=== PATIENT | male | born 1955 | race Caucasian/White ===

== ENCOUNTER 2020-06-06 09:46 | Emergency (ER) | payer BC, MEDICAID ==
[~2020-06-06] VITALS: Ht 182.9 cm; Wt 106.6 kg
[2020-06-06 09:49] VITALS: BP_SYST 104
--- NOTE | 2020-06-06 09:49 | NUR ---
Placed in room 06 . Placed on clinical research monitor, blood pressure machine and pulse oximeter. To gown for exam. Side rails up.
--- NOTE | 2020-06-06 09:52 | NUR ---
Patient brought in by ambulance in the ED c/o 8-10 episodes of diarrhea and lower abdominal pain that started 3 weels ago. Denied any chest pain or shortness of breath. Denied any fevers, chills, nausea or vomiting. Patient is alert and oriented x4, respirations even and unlabored, and speaking in full sentences. VSS, pain level 7/10. Informed of the approximate wait time. Instructed to notify ED staff for any changes in condition or worsening of symptoms while waiting to be seen by an ED provider. Patient verbalized understanding.
--- NOTE | 2020-06-06 09:56 | NUR ---
ER Dr. Delaney at bedside examining patient.
--- NOTE | 2020-06-06 10:10 | NUR ---
ECG done at bedside as ordered by Dr. Delaney. Patient tolerated the procedure well. ER Physician given copy of EKG for review.
--- NOTE | 2020-06-06 10:13 | NUR ---
body technician/painter at bedside collecting blood specimen as ordered by Dr. Delaney. Patient tolerated the procedure well.
--- NOTE | 2020-06-06 10:17 | NUR ---
UA collected and sent to the lab.
--- NOTE | 2020-06-06 10:25 | NUR ---
X-ray done at bedside as ordered by Dr. Delaney. Patient tolerated the procedure well.
[2020-06-06 10:28] LABS: BILIRUBIN,URINE NEGATIVE (NEGATIVE); BLOOD, URINE NEGATIVE (NEGATIVE); CLARITY/URINE CLEAR (CLEAR); COLOR,URINE YELLOW (YELLOW); GLUCOSE,URINE NEGATIVE (NEGATIVE); KETONES,URINE NEGATIVE (NEGATIVE); LEUKOCYTE ESTERASE ,URINE NEGATIVE (NEGATIVE); NITRITE, URINE NEGATIVE (NEGATIVE); PH,URINE 5.5 (5.0-8.0); PROTEIN URINE 1+ (NEGATIVE); UROBILINOGEN,URINE 0.2 (0.2-1.0)
[2020-06-06 10:40] LABS: BASOPHILS # (AUTO) 0.1 K/uL (0.0-0.2); BASOPHILS % (AUTO) 0.7 % (0.0-2.0); EOSINOPHILS # (AUTO) 0.5 K/uL (0.0-0.4); EOSINOPHILS % (AUTO) 5.5 % (0.0-4.0); LYMPHOCYTES # (AUTO) 1.5 K/uL (1.0-5.5); MONOCYTES # (AUTO) 0.5 K/uL (0.0-1.0); MONOCYTES % (AUTO) 5.4 % (1.7-9.3)
[2020-06-06 10:43] LABS: HEMATOCRIT 44.3 % (36-54); HEMOGLOBIN 15.1 g/dL (14.0-18.0); MEAN CORPUSCULAR HEMOGLOBIN 29 pg (27-31); MEAN CORPUSCULAR HGB CONC 34 % (32-36); MEAN CORPUSCULAR VOLUME 85 fL (79.0-98.0); NEUTROPHILS # (AUTO) 7.1 K/uL (1.8-7.7); NEUTROPHILS % (AUTO) 73.4 % (40.0-70.0); PLATELET COUNT (AUTO) 215 K/uL (130-430); RED CELL DISTRIBUTION WIDTH 14.2 % (9.0-15.0); WHITE BLOOD COUNT (AUTO) 9.7 K/uL (4.8-10.8)
[2020-06-06 11:02] LABS: CALCIUM 8.5 mg/dL (8.4-11.0); CREATININE 1.44 mg/dL (0.55-1.30); POTASSIUM 3.6 mmol/L (3.5-5.1)
[2020-06-06 11:07] LABS: PROTHROMBIN TIME 10.6 SECS (9.5-12.5)
[2020-06-06 11:08] LABS: TOTAL BILIRUBIN 0.6 mg/dL (0.0-1.0)
[2020-06-06] MEDS ORDERED: DIPHENOXYLATE HCL/ATROP SULF 2.5 MG TAB PO ONE (12:15)
--- NOTE | 2020-06-06 12:32 | NUR ---
Patient given written and verbal discharge instructions and verbalizes understanding. ER MD discussed with patient the results and treatment provided. Patient in stable condition. ID arm band removed. Rx of Lomotil given. Patient educated on pain management and to follow up with PMD. Pain Scale 0/10. Opportunity for questions provided and answered. Medication side effect fact sheet provided.
[2020-06-06 12:33] VITALS: BP_SYST 104
== END 2020-06-06 12:32 | disposition home or self-care (01) ==
LOC: SED 09:46
DX: R10.30 Lower abdominal pain, unspecified (principal); J44.9 Chronic obstructive pulmonary disease, unspecified; I10 Essential (primary) hypertension
CPT/HCPCS: 36415; 71045; 80053; 81003; 83605; 83690-TC; 85025; 85610-TC; 87040-TC; 93005; 99285

== ENCOUNTER 2023-04-13 19:30 | Inpatient (IN) | payer OTHER, BC ==
[~2023-04-13] VITALS: Ht 182.9 cm; Wt 117.9 kg
[2023-04-13 20:23] VITALS: BP_SYST 127; PULSE 72; RESP 22; TEMP 97.6; O2SAT 98
[2023-04-13 21:05] LABS: BASOPHILS % (AUTO) 0.2 % (0.0-2.0); EOSINOPHILS % (AUTO) 0.3 % (0.0-4.0); HEMATOCRIT 35.3 % (36-54); HEMOGLOBIN 11.9 g/dL (14.0-18.0); LYMPHOCYTES # (AUTO) 0.9 K/uL (1.0-5.5); LYMPHOCYTES % (AUTO) 6.6 % (20.5-51.5); MEAN CORPUSCULAR HEMOGLOBIN 29 pg (27-31); MEAN CORPUSCULAR HGB CONC 34 % (32-36); MEAN CORPUSCULAR VOLUME 87 fL (79.0-98.0); MONOCYTES # (AUTO) 0.9 K/uL (0.0-1.0); MONOCYTES % (AUTO) 6.9 % (1.7-9.3); NEUTROPHILS # (AUTO) 11.6 K/uL (1.8-7.7); PLATELET COUNT (AUTO) 191 K/uL (130-430); RED BLOOD CELL COUNT(AUTO) 4.07 MIL/uL (4.2-6.2); RED CELL DISTRIBUTION WIDTH 15.6 % (9.0-15.0); WHITE BLOOD COUNT (AUTO) 13.4 K/uL (4.8-10.8)
[2023-04-13 21:50] LABS: PROTHROMBIN TIME 10.1 SECS (9.5-12.5)
[2023-04-13 21:52] LABS: ALANINE AMINOTRANSFERASE 88 U/L (12-78); ALBUMIN 3.7 g/dL (3.4-4.8); ANION GAP 15 (5-15); ASPARTATE AMINOTRANSFERASE 42 U/L (10-37); CALCIUM 8.1 mg/dL (8.4-11.0); CARBON DIOXIDE 27 mmol/L (23-29); CHLORIDE 98 mmol/L (98-107); CREATININE 2.95 mg/dL (0.55-1.30); GFR AFRICAN AMERICAN 27 mL/min (>90); GLUCOSE 158 mg/dL (74-106); SODIUM SERUM 140 mmol/L (136-145); TOTAL BILIRUBIN 0.6 mg/dL (0.0-1.0); TOTAL PROTEIN, SERUM 6.6 g/dL (6.4-8.3)
[2023-04-13 21:53] LABS: GFR NON AFRICAN-AMERICAN 23 mL/min (>90)
[2023-04-13 21:56] LABS: POTASSIUM 2.3 mmol/L (3.5-5.1); UREA NITROGEN, BLOOD 120 mg/dL (8-21)
[2023-04-13] MEDS ORDERED: KCL 20 mEq in 100 mL (PREMIX) 100 ML IV ONE (22:30)
[2023-04-13] MEDS ORDERED: NACL 0.9% 1,000 ML IV ONE (22:30)
[2023-04-13] MEDS ORDERED: POTASSIUM CHLORIDE 20 MEQ/PKT PACKET PO ONE (22:30)
[2023-04-13] MEDS ORDERED: METO25TA6 PO (23:52)
[2023-04-13] MEDS ORDERED: AMLO5TAB92 PO (23:52)
[2023-04-13] MEDS ORDERED: ASPI-1155 PO (23:52)
[2023-04-13] MEDS ORDERED: FURO40TA5 PO (23:52)
[2023-04-13] MEDS ORDERED: METO5TAB7 PO (23:58)
[2023-04-13] MEDS ORDERED: ALBU90AE2 IH (23:58)
[2023-04-13] MEDS ORDERED: PRED20TA PO (23:58)
[2023-04-13] MEDS ORDERED: GABA300T26 PO (23:58)
[2023-04-14] MEDS ORDERED: INSULIN REGULAR, HUMAN 100 UNITS/ML, 3 ML VIAL (humuLIN R) SUBCUT PRN
[2023-04-14] MEDS ORDERED: NACL 0.9% 1,000 ML IV SCH
[2023-04-14 01:01] VITALS: BP_SYST 130; PULSE 68; RESP 18; TEMP 97.6; O2SAT 98
== END 2023-04-14 00:58 | disposition left against medical advice (07) | DRG 640 ==
LOC: SED 19:30 → STU 23:48
PROVIDERS: ADMIT General Practice; ATTEND General Practice
DX: E87.5 Hyperkalemia (principal); I21.4 Non-ST elevation (NSTEMI) myocardial infarction; J44.9 Chronic obstructive pulmonary disease, unspecified; I11.0 Hypertensive heart disease with heart failure; I50.9 Heart failure, unspecified; Z53.29 Procedure and treatment not carried out because of patient's decision for other reasons
CPT/HCPCS: 36415; 71045; 80053; 83880; 84484; 85025; 85610-TC; 85730-TC; 93005; 99285; G0378; J3480; J7030

== ENCOUNTER 2023-05-05 12:38 | Inpatient (IN) | payer OTHER, BC ==
[~2023-05-05] VITALS: Ht 182.9 cm; Wt 121.6 kg
[~2023-05-05 12:38] MED LIST: ALBU90AE2 IH; AMLO5TAB92 PO; ASPI-1155 PO; FURO40TA5 PO; GABA300T26 PO; METO25TA6 PO; METO5TAB7 PO; PRED20TA PO
[2023-05-05 12:45] VITALS: BP_SYST 128; PULSE 89; RESP 22; TEMP 97.8; O2SAT 96
[2023-05-05] MEDS ORDERED: IPRATROPIUM/ALBUTEROL SULFATE 3 ML AMPUL.NEB (DUONEB) INH ONE (13:00)
[2023-05-05] MEDS ORDERED: ALBUTEROL SULFATE 0.083% 2.5 MG/3 ML VIAL.NEB INH ONE (13:00)
[2023-05-05 13:08] VITALS: O2SAT 99
[2023-05-05 13:12] LABS: BASOPHILS # (AUTO) 0.1 K/uL (0.0-0.2); BASOPHILS % (AUTO) 0.8 % (0.0-2.0); EOSINOPHILS # (AUTO) 0.2 K/uL (0.0-0.4); EOSINOPHILS % (AUTO) 1.4 % (0.0-4.0); HEMATOCRIT 35.1 % (36-54); HEMOGLOBIN 11.5 g/dL (14.0-18.0); LYMPHOCYTES # (AUTO) 1.8 K/uL (1.0-5.5); LYMPHOCYTES % (AUTO) 16.6 % (20.5-51.5); MEAN CORPUSCULAR HEMOGLOBIN 29 pg (27-31); MEAN CORPUSCULAR HGB CONC 33 % (32-36); MEAN CORPUSCULAR VOLUME 89 fL (79.0-98.0); MONOCYTES # (AUTO) 0.9 K/uL (0.0-1.0); MONOCYTES % (AUTO) 7.9 % (1.7-9.3); NEUTROPHILS # (AUTO) 7.9 K/uL (1.8-7.7); NEUTROPHILS % (AUTO) 73.3 % (40.0-70.0); PLATELET COUNT (AUTO) 369 K/uL (130-430); RED BLOOD CELL COUNT(AUTO) 3.96 MIL/uL (4.2-6.2); RED CELL DISTRIBUTION WIDTH 16.4 % (9.0-15.0); WHITE BLOOD COUNT (AUTO) 10.8 K/uL (4.8-10.8)
[2023-05-05 13:23] LABS: ANION GAP 13 (5-15); CALCIUM 8.5 mg/dL (8.4-11.0); CARBON DIOXIDE 23 mmol/L (23-29); CHLORIDE 97 mmol/L (98-107); CREATININE 3.64 mg/dL (0.55-1.30); GFR AFRICAN AMERICAN 21 mL/min (>90); GLUCOSE 126 mg/dL (74-106); POTASSIUM 4.5 mmol/L (3.5-5.1); SODIUM SERUM 133 mmol/L (136-145); UREA NITROGEN, BLOOD 54 mg/dL (8-21)
[2023-05-05 13:29] LABS: ALANINE AMINOTRANSFERASE 41 U/L (12-78); ASPARTATE AMINOTRANSFERASE 29 U/L (10-37); TOTAL BILIRUBIN 0.6 mg/dL (0.0-1.0); TOTAL PROTEIN, SERUM 7.7 g/dL (6.4-8.3)
[2023-05-05 13:33] LABS: GFR NON AFRICAN-AMERICAN 18 mL/min (>90)
[2023-05-05 14:08] LABS: BLOOD GAS BASE EXCESS 0.3 mmol/L (-3.0-3.0); BLOOD GAS HCO3 24.1 mmol/L (21.0-27.0); BLOOD GAS PCO2 36.6 mmHg (32.0-45.0); BLOOD GAS PH 7.437 (7.350-7.450); BLOOD GAS PO2 80.6 mmHg (75.0-100.0)
[2023-05-05 14:09] LABS: ABG O2 SAT% ESTIMATE 96.3 % (94.0-100.0); ALLEN'S TEST POSITIVE (P)
[2023-05-05] MEDS ORDERED: DEXAMETHASONE SOD PHOSPHATE 10 MG/ML VIAL IVP ONE (15:00)
[2023-05-05 15:58] LABS: INR 1.1 (0.80-1.20); PROTHROMBIN TIME 11.3 SECS (9.5-12.5)
[2023-05-05] MEDS ORDERED: CEPH-548 PO (16:13)
[2023-05-05] MEDS ORDERED: CYCL10TA25 PO (16:13)
[2023-05-05] MEDS ORDERED: POTA-360 PO (16:13)
[2023-05-05 18:02] VITALS: BP_SYST 97; PULSE 68; RESP 18; TEMP 98.6; O2SAT 94
[2023-05-05] MEDS ORDERED: NALOXONE HCL 0.4 MG/ML AMP (NARCAN) IVP PRN ×2 (18:15)
[2023-05-05] MEDS ORDERED: ACETAMINOPHEN 325 MG TABLET PO PRN (18:15)
[2023-05-05] MEDS ORDERED: HYDROcodone/ACETAMIN 5-325 MG TAB (NORCO/ VICODIN) PO PRN (18:15)
[2023-05-05] MEDS ORDERED: LORazepam 2 MG/ML VIAL IVP PRN (18:15)
[2023-05-05] MEDS ORDERED: ONDANSETRON HCL 4 MG/2 ML VIAL IVP PRN (18:15)
[2023-05-05] MEDS: ALBUTEROL SULFATE 0.083% 2.5 MG/3 ML VIAL.NEB INH SCH ×2 (19:00→23:00)
[2023-05-05] MEDS: IPRATROPIUM BROM 0.5 MG/2.5 ML VIAL.NEB (ATROVENT) INH SCH ×2 (19:00→23:00)
[2023-05-05 19:25] VITALS: BP_SYST 113; RESP 18; TEMP 99.3; O2SAT 96
[2023-05-05 20:18] VITALS: O2SAT 91
[2023-05-05] MEDS: METHYLPREDNISOLONE SOD SUCC 40 MG/ML VIAL IVP SCH (21:00)
[2023-05-05] MEDS: metOLazone 5 MG TABLET PO SCH (21:00)
[2023-05-05] MEDS ORDERED: QUEtiapine FUMARATE 25 MG TABLET PO ONE (22:30)
[2023-05-05] MEDS: CYCLOBENZAPRINE HCL 10 MG TABLET (FLEXERIL) PO SCH (22:32)
[2023-05-05] MEDS: METOPROLOL TARTRATE 25 MG TABLET PO SCH (22:32)
[2023-05-05] MEDS: NORMAL SALINE 5 ML DISP.SYRIN IVF SCH (22:33)
[2023-05-06] VITALS (9 sets, daily range): BP systolic 110–123; PULSE 68–89; RESP 17–18; TEMP 97.7–98.2; O2SAT 95–98
[2023-05-06] MEDS: HYDROcodone/ACETAMIN 10-325 MG TAB PO PRN ×3 (01:36→21:50)
[2023-05-06] MEDS ORDERED: IPRATROPIUM BROM 0.5 MG/2.5 ML VIAL.NEB (ATROVENT) INH PRN (02:00)
[2023-05-06] MEDS: IPRATROPIUM BROM 0.5 MG/2.5 ML VIAL.NEB (ATROVENT) INH SCH ×6 (03:00→23:00)
[2023-05-06] MEDS: ALBUTEROL SULFATE 0.083% 2.5 MG/3 ML VIAL.NEB INH SCH ×6 (03:00→23:00)
[2023-05-06 05:05] LABS: BASOPHILS % (AUTO) 0.7 % (0.0-2.0); EOSINOPHILS % (AUTO) 0.4 % (0.0-4.0); HEMATOCRIT 27.9 % (36-54); HEMOGLOBIN 9.4 g/dL (14.0-18.0); LYMPHOCYTES # (AUTO) 0.8 K/uL (1.0-5.5); LYMPHOCYTES % (AUTO) 12.1 % (20.5-51.5); MEAN CORPUSCULAR HEMOGLOBIN 30 pg (27-31); MEAN CORPUSCULAR HGB CONC 34 % (32-36); MEAN CORPUSCULAR VOLUME 88 fL (79.0-98.0); MONOCYTES # (AUTO) 0.2 K/uL (0.0-1.0); MONOCYTES % (AUTO) 2.3 % (1.7-9.3); NEUTROPHILS # (AUTO) 5.7 K/uL (1.8-7.7); NEUTROPHILS % (AUTO) 84.5 % (40.0-70.0); PLATELET COUNT (AUTO) 292 K/uL (130-430); RED BLOOD CELL COUNT(AUTO) 3.17 MIL/uL (4.2-6.2); RED CELL DISTRIBUTION WIDTH 16.4 % (9.0-15.0); WHITE BLOOD COUNT (AUTO) 6.7 K/uL (4.8-10.8)
[2023-05-06 05:08] LABS: CALCIUM 8.1 mg/dL (8.4-11.0); CREATININE 3.17 mg/dL (0.55-1.30); PHOSPHORUS 3.8 mg/dL (2.7-4.5); POTASSIUM 5.2 mmol/L (3.5-5.1)
[2023-05-06] MEDS: NORMAL SALINE 5 ML DISP.SYRIN IVF SCH ×3 (05:29→20:17)
[2023-05-06] MEDS: METOPROLOL TARTRATE 25 MG TABLET PO SCH ×2 (08:48→20:16)
[2023-05-06] MEDS: METHYLPREDNISOLONE SOD SUCC 40 MG/ML VIAL IVP SCH ×2 (08:48→20:15)
[2023-05-06] MEDS: amLODIPine BESYLATE 5 MG TABLET PO SCH (08:49)
[2023-05-06] MEDS: ASPIRIN 81 MG TAB.CHEW PO SCH (08:49)
[2023-05-06] MEDS: metOLazone 5 MG TABLET PO SCH ×2 (08:49→20:16)
[2023-05-06] MEDS ORDERED: NON-FORMULARY MEDICATION (Potassium Chloride 1 TAB) PO SCH (09:00)
[2023-05-06] MEDS ORDERED: FUROSEMIDE 40 MG/4 ML VIAL IVP ONE (10:15)
[2023-05-06] MEDS ORDERED: PROMETHAZINE-DM 6.25 MG-15 MG/5 ML UDC PO PRN ×2 (14:45→15:00)
[2023-05-06] MEDS: PROMETHAZINE-DM 6.25 MG-15 MG/5 ML UDC PO PRN (14:51)
[2023-05-06] MEDS: FUROSEMIDE 40 MG/4 ML VIAL IVP SCH (17:35)
[2023-05-06] MEDS: GABAPENTIN 300 MG CAPSULE PO SCH (20:15)
[2023-05-06] MEDS: QUEtiapine FUMARATE 25 MG TABLET PO SCH (20:16)
[2023-05-06] MEDS: CYCLOBENZAPRINE HCL 10 MG TABLET (FLEXERIL) PO SCH (20:16)
[2023-05-07] VITALS (12 sets, daily range): BP systolic 92–147; PULSE 80–84; RESP 16–18; TEMP 97–97.7; O2SAT 95–100
[2023-05-07] MEDS: ALBUTEROL SULFATE 0.083% 2.5 MG/3 ML VIAL.NEB INH SCH ×6 (04:18→23:00)
[2023-05-07] MEDS: IPRATROPIUM BROM 0.5 MG/2.5 ML VIAL.NEB (ATROVENT) INH SCH ×6 (04:19→23:00)
[2023-05-07] MEDS: NORMAL SALINE 5 ML DISP.SYRIN IVF SCH ×3 (05:44→21:09)
[2023-05-07] MEDS: FUROSEMIDE 40 MG/4 ML VIAL IVP SCH ×2 (05:47→16:59)
[2023-05-07 06:24] LABS: BASOPHILS % (AUTO) 0.3 % (0.0-2.0); HEMATOCRIT 28.8 % (36-54); HEMOGLOBIN 9.5 g/dL (14.0-18.0); LYMPHOCYTES # (AUTO) 1.5 K/uL (1.0-5.5); LYMPHOCYTES % (AUTO) 12.4 % (20.5-51.5); MEAN CORPUSCULAR HEMOGLOBIN 29 pg (27-31); MEAN CORPUSCULAR HGB CONC 33 % (32-36); MEAN CORPUSCULAR VOLUME 88 fL (79.0-98.0); MONOCYTES # (AUTO) 0.8 K/uL (0.0-1.0); MONOCYTES % (AUTO) 6.7 % (1.7-9.3); NEUTROPHILS % (AUTO) 80.6 % (40.0-70.0); PLATELET COUNT (AUTO) 370 K/uL (130-430); RED BLOOD CELL COUNT(AUTO) 3.27 MIL/uL (4.2-6.2); WHITE BLOOD COUNT (AUTO) 12.4 K/uL (4.8-10.8)
[2023-05-07 06:47] LABS: CALCIUM 8.6 mg/dL (8.4-11.0); CREATININE 2.77 mg/dL (0.55-1.30); PHOSPHORUS 4.9 mg/dL (2.7-4.5); POTASSIUM 4.7 mmol/L (3.5-5.1)
[2023-05-07] MEDS: ASPIRIN 81 MG TAB.CHEW PO SCH (08:18)
[2023-05-07] MEDS: GABAPENTIN 300 MG CAPSULE PO SCH ×2 (08:19→21:06)
[2023-05-07] MEDS: amLODIPine BESYLATE 5 MG TABLET PO SCH (08:19)
[2023-05-07] MEDS: PROMETHAZINE-DM 6.25 MG-15 MG/5 ML UDC PO PRN (08:20)
[2023-05-07] MEDS: metOLazone 5 MG TABLET PO SCH ×2 (08:20→21:17)
[2023-05-07] MEDS: METOPROLOL TARTRATE 25 MG TABLET PO SCH ×2 (08:20→21:09)
[2023-05-07] MEDS: METHYLPREDNISOLONE SOD SUCC 40 MG/ML VIAL IVP SCH ×2 (10:29→21:04)
[2023-05-07] MEDS ORDERED: ALTEPLASE 100 MG VIAL IVP ONE (12:00)
[2023-05-07] MEDS ORDERED: ALTEPLASE 2 MG VIAL MC ONE (12:30)
[2023-05-07] MEDS: HEPARIN SODIUM,PORCINE 5,000 UNITS/ML VIAL SUBCUT SCH ×2 (14:15→21:11)
[2023-05-07] MEDS: HYDROcodone/ACETAMIN 10-325 MG TAB PO PRN (14:17)
[2023-05-07] MEDS: CYCLOBENZAPRINE HCL 10 MG TABLET (FLEXERIL) PO SCH (21:06)
[2023-05-07] MEDS: QUEtiapine FUMARATE 25 MG TABLET PO SCH (21:06)
[2023-05-08] VITALS (9 sets, daily range): BP systolic 105–134; PULSE 71–86; RESP 17–19; TEMP 97.8–98.3; O2SAT 93–97
[2023-05-08] MEDS: ALBUTEROL SULFATE 0.083% 2.5 MG/3 ML VIAL.NEB INH SCH ×7 (04:04→23:00)
[2023-05-08] MEDS: IPRATROPIUM BROM 0.5 MG/2.5 ML VIAL.NEB (ATROVENT) INH SCH ×7 (04:05→23:00)
[2023-05-08 05:41] LABS: ERYTHROCYTE SEDIMENTATION RATE 32 MM/HR (0-15)
[2023-05-08 05:53] LABS: BASOPHILS % (AUTO) 0.3 % (0.0-2.0); EOSINOPHILS % (AUTO) 0.1 % (0.0-4.0); HEMATOCRIT 27.9 % (36-54); HEMOGLOBIN 9.4 g/dL (14.0-18.0); LYMPHOCYTES # (AUTO) 1.8 K/uL (1.0-5.5); MEAN CORPUSCULAR HEMOGLOBIN 29 pg (27-31); MEAN CORPUSCULAR HGB CONC 34 % (32-36); MEAN CORPUSCULAR VOLUME 87 fL (79.0-98.0); MONOCYTES # (AUTO) 0.5 K/uL (0.0-1.0); MONOCYTES % (AUTO) 4.9 % (1.7-9.3); NEUTROPHILS # (AUTO) 8.3 K/uL (1.8-7.7); NEUTROPHILS % (AUTO) 77.7 % (40.0-70.0); PLATELET COUNT (AUTO) 387 K/uL (130-430); RED CELL DISTRIBUTION WIDTH 16.2 % (9.0-15.0); WHITE BLOOD COUNT (AUTO) 10.6 K/uL (4.8-10.8)
[2023-05-08] MEDS: NORMAL SALINE 5 ML DISP.SYRIN IVF SCH ×3 (06:04→21:27)
[2023-05-08] MEDS: HEPARIN SODIUM,PORCINE 5,000 UNITS/ML VIAL SUBCUT SCH ×3 (06:04→21:29)
[2023-05-08] MEDS: FUROSEMIDE 40 MG/4 ML VIAL IVP SCH ×2 (06:17→17:34)
[2023-05-08 06:36] LABS: ALBUMIN 2.8 g/dL (3.4-4.8); CALCIUM 8.1 mg/dL (8.4-11.0); CREATININE 2.79 mg/dL (0.55-1.30); PHOSPHORUS 5.3 mg/dL (2.7-4.5); POTASSIUM 4.1 mmol/L (3.5-5.1); TOTAL BILIRUBIN 0.4 mg/dL (0.0-1.0); TOTAL PROTEIN, SERUM 6.8 g/dL (6.4-8.3)
[2023-05-08] MEDS: amLODIPine BESYLATE 5 MG TABLET PO SCH (09:16)
[2023-05-08] MEDS: metOLazone 5 MG TABLET PO SCH ×2 (09:16→21:18)
[2023-05-08] MEDS: ASPIRIN 81 MG TAB.CHEW PO SCH (09:16)
[2023-05-08] MEDS: METOPROLOL TARTRATE 25 MG TABLET PO SCH ×2 (09:17→21:19)
[2023-05-08] MEDS: GABAPENTIN 300 MG CAPSULE PO SCH ×2 (09:17→21:18)
[2023-05-08] MEDS: METHYLPREDNISOLONE SOD SUCC 40 MG/ML VIAL IVP SCH ×2 (09:18→21:17)
[2023-05-08] MEDS: guaiFENesin/DEXTROMETHORPHAN 10 ML UDC PO PRN (17:35)
[2023-05-08] MEDS: CYCLOBENZAPRINE HCL 10 MG TABLET (FLEXERIL) PO SCH (21:18)
[2023-05-08] MEDS: QUEtiapine FUMARATE 25 MG TABLET PO SCH (21:18)
[2023-05-08] MEDS: PROMETHAZINE-DM 6.25 MG-15 MG/5 ML UDC PO PRN (21:20)
[2023-05-09] VITALS (12 sets, daily range): BP systolic 117–135; PULSE 74–80; RESP 18–20; TEMP 97.6–98.2; O2SAT 94–99
[2023-05-09 05:34] LABS: BASOPHILS % (AUTO) 0.2 % (0.0-2.0); EOSINOPHILS % (AUTO) 0.1 % (0.0-4.0); HEMATOCRIT 29.5 % (36-54); HEMOGLOBIN 9.9 g/dL (14.0-18.0); LYMPHOCYTES # (AUTO) 2.8 K/uL (1.0-5.5); LYMPHOCYTES % (AUTO) 18.7 % (20.5-51.5); MEAN CORPUSCULAR HEMOGLOBIN 29 pg (27-31); MEAN CORPUSCULAR HGB CONC 34 % (32-36); MEAN CORPUSCULAR VOLUME 87 fL (79.0-98.0); NEUTROPHILS # (AUTO) 11.1 K/uL (1.8-7.7); PLATELET COUNT (AUTO) 438 K/uL (130-430); RED BLOOD CELL COUNT(AUTO) 3.38 MIL/uL (4.2-6.2); RED CELL DISTRIBUTION WIDTH 16.6 % (9.0-15.0)
[2023-05-09] MEDS: ALBUTEROL SULFATE 0.083% 2.5 MG/3 ML VIAL.NEB INH SCH ×6 (05:34→23:00)
[2023-05-09] MEDS: IPRATROPIUM BROM 0.5 MG/2.5 ML VIAL.NEB (ATROVENT) INH SCH ×6 (05:35→23:00)
[2023-05-09 05:57] LABS: CALCIUM 8.3 mg/dL (8.4-11.0); CREATININE 2.54 mg/dL (0.55-1.30); PHOSPHORUS 4.7 mg/dL (2.7-4.5); POTASSIUM 3.8 mmol/L (3.5-5.1)
[2023-05-09] MEDS: NORMAL SALINE 5 ML DISP.SYRIN IVF SCH ×3 (06:12→22:32)
[2023-05-09] MEDS: FUROSEMIDE 40 MG/4 ML VIAL IVP SCH ×2 (06:14→16:17)
[2023-05-09] MEDS: HEPARIN SODIUM,PORCINE 5,000 UNITS/ML VIAL SUBCUT SCH ×3 (06:21→21:21)
[2023-05-09] MEDS: ASPIRIN 81 MG TAB.CHEW PO SCH (08:16)
[2023-05-09] MEDS: amLODIPine BESYLATE 5 MG TABLET PO SCH (08:16)
[2023-05-09] MEDS: GABAPENTIN 300 MG CAPSULE PO SCH ×2 (08:16→21:15)
[2023-05-09] MEDS: metOLazone 5 MG TABLET PO SCH ×2 (08:17→21:22)
[2023-05-09] MEDS: METOPROLOL TARTRATE 25 MG TABLET PO SCH ×2 (08:17→21:15)
[2023-05-09] MEDS: METHYLPREDNISOLONE SOD SUCC 40 MG/ML VIAL IVP SCH ×2 (08:18→22:32)
[2023-05-09] MEDS: guaiFENesin/DEXTROMETHORPHAN 10 ML UDC PO PRN ×2 (08:36→16:17)
[2023-05-09] MEDS: QUEtiapine FUMARATE 25 MG TABLET PO SCH (21:14)
[2023-05-09] MEDS: CYCLOBENZAPRINE HCL 10 MG TABLET (FLEXERIL) PO SCH (21:14)
[2023-05-10] VITALS (9 sets, daily range): BP systolic 109–128; PULSE 66–89; RESP 15–22; TEMP 96.7–98.7; O2SAT 93–100
[2023-05-10] MEDS: ALBUTEROL SULFATE 0.083% 2.5 MG/3 ML VIAL.NEB INH SCH ×4 (03:00→13:12)
[2023-05-10] MEDS: IPRATROPIUM BROM 0.5 MG/2.5 ML VIAL.NEB (ATROVENT) INH SCH ×4 (03:00→13:13)
[2023-05-10] MEDS: HEPARIN SODIUM,PORCINE 5,000 UNITS/ML VIAL SUBCUT SCH ×2 (05:03→14:00)
[2023-05-10] MEDS: NORMAL SALINE 5 ML DISP.SYRIN IVF SCH ×2 (05:03→14:00)
[2023-05-10] MEDS: FUROSEMIDE 40 MG/4 ML VIAL IVP SCH (06:06)
[2023-05-10 07:09] LABS: BASOPHILS % (AUTO) 0.2 % (0.0-2.0); EOSINOPHILS % (AUTO) 0.1 % (0.0-4.0); HEMATOCRIT 28.8 % (36-54); HEMOGLOBIN 9.6 g/dL (14.0-18.0); LYMPHOCYTES # (AUTO) 2.6 K/uL (1.0-5.5); LYMPHOCYTES % (AUTO) 18.8 % (20.5-51.5); MEAN CORPUSCULAR HEMOGLOBIN 29 pg (27-31); MEAN CORPUSCULAR HGB CONC 33 % (32-36); MEAN CORPUSCULAR VOLUME 87 fL (79.0-98.0); MONOCYTES # (AUTO) 0.9 K/uL (0.0-1.0); MONOCYTES % (AUTO) 6.7 % (1.7-9.3); NEUTROPHILS # (AUTO) 10.2 K/uL (1.8-7.7); NEUTROPHILS % (AUTO) 74.2 % (40.0-70.0); PLATELET COUNT (AUTO) 409 K/uL (130-430); RED BLOOD CELL COUNT(AUTO) 3.29 MIL/uL (4.2-6.2); RED CELL DISTRIBUTION WIDTH 16.4 % (9.0-15.0); WHITE BLOOD COUNT (AUTO) 13.7 K/uL (4.8-10.8)
[2023-05-10 07:23] LABS: CALCIUM 8.5 mg/dL (8.4-11.0); CREATININE 2.46 mg/dL (0.55-1.30); PHOSPHORUS 4.6 mg/dL (2.7-4.5); POTASSIUM 3.7 mmol/L (3.5-5.1); TOTAL BILIRUBIN 0.3 mg/dL (0.0-1.0); TOTAL PROTEIN, SERUM 6.7 g/dL (6.4-8.3)
[2023-05-10] MEDS: ASPIRIN 81 MG TAB.CHEW PO SCH (08:51)
[2023-05-10] MEDS: amLODIPine BESYLATE 5 MG TABLET PO SCH (08:53)
[2023-05-10] MEDS: GABAPENTIN 300 MG CAPSULE PO SCH (08:54)
[2023-05-10] MEDS: metOLazone 5 MG TABLET PO SCH (08:54)
[2023-05-10] MEDS: METOPROLOL TARTRATE 25 MG TABLET PO SCH (08:54)
[2023-05-10] MEDS: METHYLPREDNISOLONE SOD SUCC 40 MG/ML VIAL IVP SCH (10:23)
[2023-05-10] MEDS ORDERED: FURO40TA5 PO (13:03)
[2023-05-11] MEDS ORDERED: METHYLPREDNISOLONE SOD SUCC 40 MG/ML VIAL IVP SCH (09:00)
== END 2023-05-10 16:15 | DRG 682 ==
LOC: SED 12:38 → STU 15:28 → SMU 05-09 14:18
PROVIDERS: ADMIT Preventive Medicine Preventive Medicine/Occupational Environmental Medicine; ATTEND Preventive Medicine Preventive Medicine/Occupational Environmental Medicine
DX: N17.9 Acute kidney failure, unspecified (principal); I50.43 Acute on chronic combined systolic (congestive) and diastolic (congestive) heart failure; J96.01 Acute respiratory failure with hypoxia; I13.0 Hypertensive heart and chronic kidney disease with heart failure and stage 1 through stage 4 chronic kidney disease, or unspecified chronic kidney disease; J44.1 Chronic obstructive pulmonary disease with (acute) exacerbation; E87.1 Hypo-osmolality and hyponatremia; N18.4 Chronic kidney disease, stage 4 (severe); D64.9 Anemia, unspecified; E83.52 Hypercalcemia; E88.09 Other disorders of plasma-protein metabolism, not elsewhere classified; E83.51 Hypocalcemia; E83.39 Other disorders of phosphorus metabolism; E66.9 Obesity, unspecified; D75.839 Thrombocytosis, unspecified; D72.829 Elevated white blood cell count, unspecified; I87.2 Venous insufficiency (chronic) (peripheral); Z79.82 Long term (current) use of aspirin; Z79.899 Other long term (current) drug therapy
CPT/HCPCS: 36415; 71045; 76770; 80048; 80053; 82803; 83735; 83880; 84100; 84484; 85025; 85610-TC; 85651-TC; 85730-TC; 93005; 93306; 94640; 94664; 94760; 97116-GP; 97530-GP; 99285; G0378; J1030; J1100; J1644; J1940; J2997

== ENCOUNTER 2023-11-09 11:02 | Emergency (ER) | payer OTHER, BC ==
[~2023-11-09] VITALS: Ht 182.9 cm; Wt 81.6 kg
[2023-11-09 11:02] VITALS: BP_SYST 132; PULSE 99; RESP 19; TEMP 98.2; O2SAT 96
[~2023-11-09 11:02] MED LIST changes: +CYCL10TA25 PO; +POTA-360 PO
[2023-11-09 11:43] LABS: BASOPHILS % (AUTO) 0.7 % (0.0-2.0); EOSINOPHILS # (AUTO) 0.5 K/uL (0.0-0.4); EOSINOPHILS % (AUTO) 6.3 % (0.0-4.0); HEMATOCRIT 33.8 % (36-54); HEMOGLOBIN 11.5 g/dL (14.0-18.0); LYMPHOCYTES # (AUTO) 1.4 K/uL (1.0-5.5); LYMPHOCYTES % (AUTO) 19.8 % (20.5-51.5); MEAN CORPUSCULAR HEMOGLOBIN 29 pg (27-31); MEAN CORPUSCULAR HGB CONC 34 % (32-36); MEAN CORPUSCULAR VOLUME 85 fL (79.0-98.0); MONOCYTES # (AUTO) 0.5 K/uL (0.0-1.0); MONOCYTES % (AUTO) 7.3 % (1.7-9.3); NEUTROPHILS # (AUTO) 4.8 K/uL (1.8-7.7); NEUTROPHILS % (AUTO) 65.9 % (40.0-70.0); PLATELET COUNT (AUTO) 228 K/uL (130-430); RED CELL DISTRIBUTION WIDTH 14.6 % (9.0-15.0); WHITE BLOOD COUNT (AUTO) 7.3 K/uL (4.8-10.8)
[2023-11-09 12:04] LABS: ALANINE AMINOTRANSFERASE 43 U/L (12-78); ALBUMIN 3.8 g/dL (3.4-4.8); ANION GAP 9 (5-15); ASPARTATE AMINOTRANSFERASE 21 U/L (10-37); CALCIUM 8.4 mg/dL (8.4-11.0); CARBON DIOXIDE 29 mmol/L (23-29); CHLORIDE 107 mmol/L (98-107); CREATININE 2.12 mg/dL (0.55-1.30); GFR AFRICAN AMERICAN 40 mL/min (>90); GFR NON AFRICAN-AMERICAN 33 mL/min (>90); GLUCOSE 104 mg/dL (74-106); POTASSIUM 3.4 mmol/L (3.5-5.1); SODIUM SERUM 145 mmol/L (136-145); TOTAL BILIRUBIN 0.5 mg/dL (0.0-1.0); TOTAL PROTEIN, SERUM 6.6 g/dL (6.4-8.3); UREA NITROGEN, BLOOD 31 mg/dL (8-21)
[2023-11-09 12:06] LABS: BILIRUBIN,DIRECT 0.1 mg/dL (0.0-0.3)
[2023-11-09 12:11] LABS: PROTHROMBIN TIME 10.6 SECS (9.5-12.5)
[2023-11-09] MEDS: HYDROcodone/ACETAMIN 5-325 MG TAB (NORCO/ VICODIN) PO ONE (12:33)
[2023-11-09 13:17] LABS: BILIRUBIN,URINE NEGATIVE (NEGATIVE); BLOOD, URINE NEGATIVE (NEGATIVE); CLARITY/URINE CLEAR (CLEAR); COLOR,URINE YELLOW (YELLOW); GLUCOSE,URINE NEGATIVE (NEGATIVE); KETONES,URINE NEGATIVE (NEGATIVE); LEUKOCYTE ESTERASE ,URINE NEGATIVE (NEGATIVE); NITRITE, URINE NEGATIVE (NEGATIVE); PH,URINE 5.5 (5.0-8.0); PROTEIN URINE NEGATIVE (NEGATIVE); UROBILINOGEN,URINE 0.2 (0.2-1.0)
[2023-11-09] MEDS ORDERED: AUG875 PO (13:27)
[2023-11-09 13:38] VITALS: BP_SYST 132; PULSE 99; RESP 19; TEMP 98.2; O2SAT 96
== END 2023-11-09 13:39 | disposition home or self-care (01) ==
LOC: SED 11:02
DX: J40 Bronchitis, not specified as acute or chronic (principal); R06.02 Shortness of breath; M79.89 Other specified soft tissue disorders; J44.9 Chronic obstructive pulmonary disease, unspecified; I13.0 Hypertensive heart and chronic kidney disease with heart failure and stage 1 through stage 4 chronic kidney disease, or unspecified chronic kidney disease; N18.9 Chronic kidney disease, unspecified; I50.9 Heart failure, unspecified; Z79.899 Other long term (current) drug therapy
CPT/HCPCS: 36415; 80048; 80076; 81001; 81003; 83880; 84484; 85025; 85610; 85730; 87040; 93005; 99284

== ENCOUNTER 2023-11-27 10:11 | Emergency (ER) | payer OTHER, BC ==
[~2023-11-27] VITALS: Ht 182.9 cm; Wt 127.0 kg
[~2023-11-27 10:11] MED LIST changes: +AUG875 PO
[2023-11-27 10:27] VITALS: BP_SYST 157; PULSE 81; RESP 18; TEMP 98.1; O2SAT 96
[2023-11-27 11:57] LABS: BASOPHILS % (AUTO) 0.2 % (0.0-2.0); EOSINOPHILS % (AUTO) 0.1 % (0.0-4.0); HEMATOCRIT 35.6 % (36-54); HEMOGLOBIN 11.9 g/dL (14.0-18.0); LYMPHOCYTES # (AUTO) 1.2 K/uL (1.0-5.5); LYMPHOCYTES % (AUTO) 13.3 % (20.5-51.5); MEAN CORPUSCULAR HEMOGLOBIN 29 pg (27-31); MEAN CORPUSCULAR HGB CONC 33 % (32-36); MEAN CORPUSCULAR VOLUME 86 fL (79.0-98.0); MONOCYTES # (AUTO) 0.8 K/uL (0.0-1.0); MONOCYTES % (AUTO) 8.7 % (1.7-9.3); NEUTROPHILS # (AUTO) 7.3 K/uL (1.8-7.7); NEUTROPHILS % (AUTO) 77.7 % (40.0-70.0); PLATELET COUNT (AUTO) 176 K/uL (130-430); RED BLOOD CELL COUNT(AUTO) 4.16 MIL/uL (4.2-6.2); WHITE BLOOD COUNT (AUTO) 9.4 K/uL (4.8-10.8)
[2023-11-27 12:10] LABS: CALCIUM 8.5 mg/dL (8.4-11.0); CREATININE 1.83 mg/dL (0.55-1.30); POTASSIUM 3.5 mmol/L (3.5-5.1)
[2023-11-27 12:15] LABS: ALBUMIN 3.5 g/dL (3.4-4.8); BILIRUBIN,DIRECT 0.1 mg/dL (0.0-0.3); TOTAL BILIRUBIN 0.3 mg/dL (0.0-1.0); TOTAL PROTEIN, SERUM 6.9 g/dL (6.4-8.3)
[2023-11-27 12:40] LABS: BILIRUBIN,URINE NEGATIVE (NEGATIVE); BLOOD, URINE NEGATIVE (NEGATIVE); CLARITY/URINE CLEAR (CLEAR); COLOR,URINE YELLOW (YELLOW); GLUCOSE,URINE NEGATIVE (NEGATIVE); KETONES,URINE NEGATIVE (NEGATIVE); LEUKOCYTE ESTERASE ,URINE NEGATIVE (NEGATIVE); NITRITE, URINE NEGATIVE (NEGATIVE); PROTEIN URINE TRACE (NEGATIVE); UROBILINOGEN,URINE 0.2 (0.2-1.0)
[2023-11-27 13:06] LABS: BACTERIA,URINE None Seen /HPF (None Seen); MUCUS,URINE 1+ /LPF (None Seen); RBC,URINE NONE SEEN /HPF (0-3); WBC,URINE 0-3 /HPF (0-3)
[2023-11-27] MEDS ORDERED: FURO-150 PO (13:58)
[2023-11-27] MEDS ORDERED: FUROSEMIDE 40 MG/4 ML VIAL IVP ONE (14:00)
[2023-11-27 14:11] VITALS: BP_SYST 138; PULSE 80; RESP 20; TEMP 98.1; O2SAT 97
== END 2023-11-27 13:45 | disposition home or self-care (01) ==
LOC: SED 10:11
DX: R60.0 Localized edema (principal); I11.0 Hypertensive heart disease with heart failure; I50.9 Heart failure, unspecified; J44.9 Chronic obstructive pulmonary disease, unspecified; Z79.899 Other long term (current) drug therapy
CPT/HCPCS: 36415; 71045; 80048; 80076; 81000; 81001; 81015; 85025; 99284